=== PATIENT | female | born 1960 | race Hispanic/Latino ===

== ENCOUNTER 2018-03-30 05:17 | Emergency (ER) | payer MEDICARE, MEDICAID ==
[~2018-03-30] VITALS: Ht 154.9 cm; Wt 60.8 kg
[2018-03-30] MEDS ORDERED: ARAVA10 MG PO (05:32)
[2018-03-30] MEDS ORDERED: LISINOPRIL10 MG PO (05:33)
[2018-03-30] MEDS ORDERED: OMEPRAZOLE40 MG PO (05:33)
[2018-03-30] MEDS ORDERED: ABILIFY10 MG PO (05:34)
[2018-03-30] MEDS ORDERED: ASPIR 8181 MG PO (05:34)
[2018-03-30] MEDS ORDERED: ACID REDUCER75 MG PO (05:34)
[2018-03-30] MEDS ORDERED: VERAPAMIL ER120 MG PO (05:35)
[2018-03-30] MEDS ORDERED: CYMBALTA20 MG PO (05:35)
[2018-03-30] MEDS ORDERED: TOPAMAX15 MG PO (05:35)
[2018-03-30] MEDS ORDERED: KEFLEX500 MG PO (05:49)
== END 2018-03-30 06:02 | disposition home or self-care (01) ==
LOC: ED 05:17
DX: H60.12 Cellulitis of left external ear (principal); I10 Essential (primary) hypertension; Z88.8 Allergy status to other drugs, medicaments and biological substances; Z79.82 Long term (current) use of aspirin; Z79.899 Other long term (current) drug therapy
CPT/HCPCS: 99283; Q0163